=== PATIENT | female | born 1990 | race Caucasian/White ===

== ENCOUNTER 2021-01-14 21:14 | Emergency (ER) | payer OTHER ==
[~2021-01-14] VITALS: Ht 160 cm; Wt 119.3 kg
[2021-01-14 23:48] VITALS: BP 151/74
--- NOTE | 2021-01-14 23:58 | NUR ---
PT AMBULATED TO LOBBY TO A/W BED. URINE SPECIMEN COLLECTED
[2021-01-15] MEDS ORDERED: KETOROLAC 60 MG/2 ML VIAL IM ONE ×2 (00:10→02:28)
[2021-01-15 00:35] LABS: BASOPHILS # (AUTO) 0.1 K/uL (0.00-0.22); BASOPHILS % (AUTO) 0.4 % (0.0-2.0); EOSINOPHILS # (AUTO) 0.1 K/uL (0-0.4); EOSINOPHILS % (AUTO) 0.4 % (0.0-4.0); HEMATOCRIT 43.7 % (36-48); HEMOGLOBIN 14.6 g/dL (12.0-16.0); LYMPHOCYTES # (AUTO) 2.9 K/uL (2.5-16.5); MEAN CORPUSCULAR HEMOGLOBIN 29 pg (27-31); MEAN CORPUSCULAR HGB CONC 34 g/dL (33-37); MEAN CORPUSCULAR VOLUME 87.5 fL (80-94); MONOCYTES # (AUTO) 0.6 K/uL (0.8-1.0); MONOCYTES % (AUTO) 4.5 % (1.7-9.3); NEUTROPHILS # (AUTO) 10.3 K/uL (1.8-7.7); NEUTROPHILS % (AUTO) 73.7 % (42.2-75.2); PLATELET COUNT (AUTO) 358 K/uL (140-450); RED CELL DISTRIBUTION WIDTH 13.8 % (11.6-13.7)
[2021-01-15 00:49] LABS: ANION GAP 12.7 (8-16); CARBON DIOXIDE 27.2 mmol/L (21-32); CREATININE 0.8 mg/dL (0.6-1.3); POTASSIUM 3.9 mmol/L (3.5-5.1)
[2021-01-15 01:13] LABS: APPEARANCE,URINE SL CLOUDY (CLEAR); BILIRUBIN,URINE NEGATIVE (NEGATIVE); BLOOD, URINE TRACE-I (NEGATIVE); COLOR,URINE YELLOW (YELLOW); LEUKOCYTE ESTERASE ,URINE TRACE (NEGATIVE); NITRITE, URINE NEGATIVE (NEGATIVE); PH,URINE 5.5 (5.0-9.0); UGLUCOSE NEGATIVE (NEGATIVE)
[2021-01-15 01:19] LABS: RBC,URINE 0-5 /HPF (0-5)
[2021-01-15] MEDS ORDERED: cephALEXin 500 MG CAP PO ONE (01:45)
[2021-01-15] MEDS ORDERED: IBUP-2213 PO (01:48)
[2021-01-15] MEDS ORDERED: CEPH500C16 PO (01:48)
[2021-01-15 02:00] VITALS: BP 134/82
--- NOTE | 2021-01-15 02:45 | NUR ---
Patient discharged with v/s stable. Written and verbal after care instructions given and explained. Patient alert, oriented and verbalized understanding of instructions. Ambulatory with steady gait. All questions addressed prior to discharge. ID band removed. Patient advised to follow up with PMD. Rx of KEFLEX AND MOTRIN given. Patient educated on indication of medication including possible reaction and side effects. Opportunity to ask questions provided and answered.
== END 2021-01-15 02:45 | disposition home or self-care (01) ==
LOC: MED 21:14
DX: N39.0 Urinary tract infection, site not specified (principal); M54.6 Pain in thoracic spine; R35.8 Other polyuria; Z79.899 Other long term (current) drug therapy
CPT/HCPCS: 36415; 80048; 81001; 81025; 85025; 96372; 99283; J1885